=== PATIENT | female | born 1960 | race Caucasian/White ===

== ENCOUNTER → 2016-09-22 | Day surgery (SDC) | payer MEDICAID ==
[~2016-09-22] MED LIST: ALBUTEROL-200 PUFFS/ IH; AMLODIPINE5 M1 PO; ANTIVERT GENERI25 MG PO; LISINOPRIL40 MG PO; NORVASC 5MG. TAB5 MG PO; OMEPRAZOLE20 MG PO; Zofran4 MG PO
[2016-09-22 08:22] LABS: BUN 6 mg/dL (7-18); HEMOGLOBIN 15.7 g/dL (12.2-16.2); LYMPH # 2.6 K/mm3 (0.7-4.5); LYMPH % 23.9 % (10-50.0)
[2016-09-22 08:24] LABS: GFR (ESTIMATED) 75 ML/MIN (59-)
--- NOTE | 2016-09-22 14:01 | RADIOLOGY REPORT PS360 ---
CARDIAC CATHETERIZATION DATE OF CATHETERIZATION:09/22/2016 9:23 AM PROCEDURES: 1. Left heart catheterization 2. Left ventriculogram 3. Selective coronary angiogram 4. FFR to the LAD 5. Drug-eluting stent deployment to the ostial proximal LAD INDICATION FOR TEST: 1. Angina pectoris class III and IV 2. Coronary artery disease 3. Ischemic response to adenosine with an FFR at 0.63 Informed consent was obtained prior to the procedure. COMPLICATIONS: None Clinical history: 56-year-old lady with long history of tobacco abuse who presented to clinic with classic angina pectoris symptoms. Lexiscan Myoview was interpreted as normal however patient had overwhelming symptoms highly suggestive of angina pectoris. Essentially nothing else was on the differential for her classic angina pectoris. Patient was on 2 antianginal's including Norvasc 5 mg a day and bisoprolol 5 mg a day along with lisinopril 10 mg daily and hydrochlorothiazide 25 mg daily. Because of patient's overwhelming symptoms and maximal medical management was decided to take her to the [facility] for diagnostic angiography. ESTIMATED BLOOD LOSS: Less than 10 ml. TECHNIQUE: One percent lidocaine was used to anesthetize the right groin. The right femoral artery was accessed via the Seldinger technique. A 4-Tuvaluan sheath was placed in the right femoral artery. Over a 3 J-wire a JL 4 JR4 catheter were used to perform left heart catheterization left ventriculogram and selective coronary angiogram. Angiography demonstrated a 50-70% stenosis in the proximal LAD which was eccentric. Because of patient's symptoms it was decided to subject this lesion to FFR interrogation. 5000 units of heparin was given intravenously and the 4 [place] sheath was exchanged for a 6 [place] sheath. Brilinta 180 mg along with aspirin 325-mg was given on the table. An ACT was measured 362 seconds prior to the interrogation. A JL 4 guide catheter was placed in the left coronary cusp and an FFR wire was normalized. The guide catheter was used intubate the left main artery wire was placed in the mid LAD. The guide catheter was then placed back into the left coronary cusp making sure not to operate flow down the LAD. Adenosine was infused and within 1 minute the FFR index dropped to 0.63 and patient became uncomfortable and having severe chest pain on the table scribed this exactly what she has been feeling over the last several weeks. Given the profound ischemic response to adenosine a 2.5 x 14 mm resolute stent was deployed at 14 elliott in the ostial proximal LAD. A 3 mm x 6 mm noncompliant balloon was then taken to 20 elliott in the ostium of the LAD proximal portion, midportion and distal segment of the stent. 600 mcg of nitroglycerin was administered intra-coronary and postangiography demonstrated excellent angiographic results with wide patency of the LAD and no encroachment upon the circumflex artery. The closing ACT was 366 seconds. At the end of the procedure the apparatus was removed the groin was reprepped closure changed sheath was removed good hemostasis was achieved using Perclose device patient was transferred to the postop holding area in stable condition ANGIOGRAPHIC RESULTS: 1. The left main artery normal 2. The left anterior descending artery has an ostial proximal eccentric 50-70% stenosis with the remaining vessel normal 3. The circumflex artery is nondominant and normal 4. The right coronary artery is a large dominant vessel and normal 5. The DARNELL ventriculogram reveals normal ejection fraction estimated at 65% 6. The left ventricular end-diastolic pressure less than 10 mmHg IMPRESSION: 1. Angiographically indeterminant ostial proximal LAD disease which produced a severe hemodynamic flow limitation with an FFR index of 0.63.. 2. Successful stenting of hemodynamically severe stenosis reduced to less than 10% with 1 drug-eluting stent postdilated with a 3 mm noncompliant high pressure balloon at 20 elliott 3. Normal ejection fraction 4. Normal left ventricular end-diastolic pressure PLAN: 1. Brilinta and aspirin 2. LDL less than 70 3. Tobacco cessation 4. Risk factor modification
[2016-09-22 15:29] VITALS: BP 133/75
== END ==
LOC: CATHLAB 07:17
PROVIDERS: Internal Medicine
PROC: B2111ZZ Fluoroscopy of Multiple Coronary Arteries using Low Osmolar Contrast (ICD-10-PCS; 2016-09-22)
PROC: B2151ZZ Fluoroscopy of Left Heart using Low Osmolar Contrast (ICD-10-PCS; 2016-09-22)
PROC: 4A033BC Measurement of Arterial Pressure, Coronary, Percutaneous Approach (ICD-10-PCS; 2016-09-22)
PROC: 027034Z Dilation of Coronary Artery, One Artery with Drug-eluting Intraluminal Device, Percutaneous Approach (ICD-10-PCS; 2016-09-22)
PROC: 4A023N7 Measurement of Cardiac Sampling and Pressure, Left Heart, Percutaneous Approach (ICD-10-PCS; principal; 2016-09-22 09:45)
DX: I25.119 Atherosclerotic heart disease of native coronary artery with unspecified angina pectoris (principal); Z72.0 Tobacco use; I25.9 Chronic ischemic heart disease, unspecified
CPT/HCPCS: C1725; C1760; C1769; C1876; J0153; J1644; Q9967